=== PATIENT | male | born 1995 | race Two or more races ===

== ENCOUNTER 2018-08-13 19:28 | Emergency (ER) | payer SELFPAY ==
--- NOTE | 2018-08-13 20:06 | EDM.PDOC ---
ED HPI GENERAL MEDICAL PROBLEM - General Chief Complaint: Genitourinary Problem Stated Complaint: UTI Time Seen by Provider: 08/13/18 20:03 - History of Present Illness INITIAL COMMENTS - FREE TEXT/NARRATIVE: HISTORY AND PHYSICAL: History of present illness: The patient is a 22-year-old male who presents to the ED with complaints of urgency frequency and some discomfort with urination that has been ongoing for the last 1 week. He doesn't have any testicular pain or swelling no skin lesions and no penile discharge that is cloudy just a clear drainage. He's had no fever chills nausea vomiting or abdominal pain. He says that he has not been practicing safe sex but has never had an STD before. He has no history of kidney problems Review of systems: As per history of present illness and below otherwise all systems reviewed and negative. Past medical history: As per history of present illness and as reviewed below otherwise noncontributory. Surgical history: As per history of present illness and as reviewed below otherwise noncontributory. Social history: No reported history of drug or alcohol abuse. Family history: As per history of present illness and as reviewed below otherwise noncontributory. Physical exam: General: General: Well-developed well-nourished man who is nontoxic and vital signs are noted by me HEENT: Atraumatic, normocephalic, negative for conjunctival pallor or scleral icterus, mucous membranes moist, throat clear, neck supple, nontender, trachea midline. Lungs: Clear to auscultation, breath sounds equal bilaterally, chest nontender. Heart: S1S2, regular rate and rhythm no overt murmurs Abdomen: Soft, nondistended, nontender. Negative for masses or hepatosplenomegaly. Negative for costovertebral tenderness. Pelvis: Deferred Genitourinary: Deferred. Rectal: Deferred. Extremities: Atraumatic, full range of motion, no edema. Neurovascular unremarkable. Neuro: Awake, alert, oriented. Cranial nerves II through XII unremarkable. Cerebellum unremarkable. Motor and sensory unremarkable throughout. Exam nonfocal. Diagnostics: UA with reflex, urine for gonorrhea and chlamydia Therapeutics: Rocephin IM, Zithromax by mouth Impression: Urethritis Definitive disposition and diagnosis as appropriate pending reevaluation and review of above. penis Pain Score (Numeric/FACES): 1 - Related Data Allergies Allergy/AdvReac Type Severity Reaction Status Date / Time No Known Allergies Allergy Verified 08/13/18 19:56 Home Meds: Home Meds . [No Known Home Meds] 08/13/18 [History] Past Medical History - Past Health History Medical/Surgical History: Denies Medical/Surgical History Hematologic History: Reports: None Social & Family History - Tobacco Use Smoking Status *Q: Current Every Day Smoker Years of Tobacco use: 1 Packs/Tins Daily: 1 - Recreational Drug Use Recreational Drug Use: Yes Drug Use in Last 12 Months: Yes Recreational Drug Type: Reports: Marijuana/Hashish Recreational Drug Use Frequency: Socially ED ROS GENERAL - Review of Systems Review Of Systems: ROS reveals no pertinent complaints other than HPI. ED EXAM, GENERAL - Physical Exam Exam: See Below (see dictation) Course - Vital Signs Last Recorded V/S: Last Vital Signs Temp 36.5 C 08/13/18 19:45 Pulse 86 08/13/18 19:45 Resp 18 08/13/18 19:45 BP 137/55 L 08/13/18 19:45 Pulse Ox 95 08/13/18 19:45 - Orders/Labs/Meds Orders: Active Orders 24 hr Category Date Time Status CHLAMYDIA AND GONORRHEA BY [facility] Stat Lab 08/13/18 20:08 Received Labs: Laboratory Tests 08/13/18 Range/Units 20:04 Urine Color YELLOW Urine Appearance CLEAR Urine pH 5.5 (5.0-8.0) Ur Specific [place] >= 1.030 (1.001-1.035) Urine Protein NEGATIVE (NEGATIVE) mg/dL Urine Glucose (UA) NEGATIVE (NEGATIVE) mg/dL Urine Ketones TRACE H (NEGATIVE) mg/dL Urine Occult Blood TRACE-INTACT H (NEGATIVE) Urine Nitrite NEGATIVE (NEGATIVE) Urine Bilirubin NEGATIVE (NEGATIVE) Urine Urobilinogen 0.2 (<2.0) EU/dL Ur Leukocyte Esterase NEGATIVE (NEGATIVE) Urine RBC 0-1 (0-2/HPF) Urine WBC 0-1 (0-5/HPF) Ur Epithelial Cells RARE (NONE-FEW) Urine Bacteria FEW (NEGATIVE) Urine Mucus LIGHT (NONE-MOD) Meds: Medications Discontinued Medications Generic Name Dose Route Start Last Admin Trade Name Freq PRN Reason Stop Dose Admin Azithromycin 1,000 mg 08/13/18 20:13 08/13/18 20:25 Zithromax PO 08/13/18 20:14 1,000 mg ONETIME ONE Administration Ceftriaxone Sodium 250 mg/ 1 mls @ 1 mls/sec 08/13/18 20:13 08/13/18 20:26 Lidocaine HCl IM 08/13/18 20:14 1 mls/sec ONETIME ONE Administration Departure - Departure Time of Disposition: 20:32 Disposition: Home, Self-Care 01 Condition: Good Clinical Impression: Ureteritis - Discharge Information Referrals: PCP,Unknown [Primary Care Provider] - Forms: ED Department Discharge Additional Instructions: The following information is given to patients seen in the emergency department who are being discharged to home. This information is to outline your options for follow-up care. We provide all patients seen in our emergency department with a follow-up referral. The need for follow-up, as well as the timing and circumstances, are variable depending upon the specifics of your emergency department visit. If you don't have a primary care physician on staff, we will provide you with a referral. We always advise you to contact your personal physician following an emergency department visit to inform them of the circumstance of the visit and for follow-up with them and/or the need for any referrals to a consulting specialist. The emergency department will also refer you to a specialist when appropriate. This referral assures that you have the opportunity for followup care with a specialist. All of these measure are taken in an effort to provide you with optimal care, which includes your followup. Under all circumstances we always encourage you to contact your private physician who remains a resource for coordinating your care. When calling for followup care, please make the office aware that this follow-up is from your recent emergency room visit. If for any reason you are refused follow-up, please contact the [facility] emergency department at and ask to speak to the emergency department charge nurse. [facility] Primary care- Internal Medicine and Family [address] [address] Continue to push hydration and to schedule a follow-up appointment with one of our providers in the clinic or your provider for reevaluation and further care. Please do not have sexual intercourse for the next 3 days and then use condoms thereafter. Turned to ER as needed and as discussed. You will be contacted if your urine test is positive as we discussed that keeping mind you have been treated appropriately here in the ED tonight - My Orders Last 24 Hours: My Active Orders 08/13/18 20:08 [facility] Stat - Assessment/Plan Last 24 Hours: My Active Orders 08/13/18 20:08 [facility]YD[facility]A [facility] Stat
[2018-08-13] MEDS ORDERED: Azithromycin 250 MG Tab PO ONE (20:13)
[2018-08-13] MEDS ORDERED: cefTRIAXone 250 MG in Lidocaine 1% 1 ML IM ONE (20:13)
== END 2018-08-13 20:55 | disposition home or self-care (01) ==
LOC: MW.ED 19:28
DX: N34.2 Other urethritis (principal); F17.210 Nicotine dependence, cigarettes, uncomplicated
CPT/HCPCS: 81001; 87491; 87591; 96372; 99283; A9270; J0696; J2001